=== PATIENT | male | born 1960 | race Caucasian/White ===

== ENCOUNTER 2019-10-27 11:17 | Inpatient (IN) | payer OTHER ==
[2019-10-27 12:49] VITALS: BMI 31.6
--- NOTE | 2019-10-27 13:23 | HP ---
CIWA Score - Admission Criteria [facility]AS Guidelines: Admission for Medically Managed Detox: Requires at least one of the followin. CIWA greater than 12 2. Seizures within the past 24 hours 3. Delirium tremens within the past 24 hours 4. Hallucinations within the past 24 hours 5. Acute intervention needed for co occurring medical disorder 6. Acute intervention needed for co occurring psychiatric disorder 7. Severe withdrawal that cannot be handled at a lower level of care (continued vomiting, continued diarrhea, abnormal vital signs) requiring intravenous medication and/or fluids 8. Admitting History and Physical - Admission Chief Complaint: " I want to stop alcohol and heroin use." History of Present Illness: 59 year old with alcohol dependence and opioid dependence on agonist therapy at [facility]. He is using alcohol about daily one pint of whisky but usually 2-3 times per week, but last drank this morning breathalyzer 0.059. He is on agonist therapy of 70mg of methadone daily from [facility] and still uses heroin out of habit 1 bag daily. He is also on oxycodone prescribed by PMD. Last seizure 5 years ago. He is smoking 2-3 ciggs per day, since 12 years old. PMH: Severe osteoarthritis, COPD, Asthma, Seizure Disorder, CAD, H/O Stroke 1998 Proair, Dilantin 300mg BID Isosorbide moninitrate daily, Nitro 0.4mg SL prn every 5 mins. Clopidrogel 75mg daily Ramipril 5mg daily Mirtazapine 45md qhs Baclofen 10mg TID prn Amitiza 24 mcg BID with food. Ranexa 1 tab BID Furosemide 20mg QD He domiciled in the [facility] with . He believes he needs a structured environment to completely stop using the alcohol. History Source: Patient Limitations to Obtaining History: No Limitations - Past Medical History LEGAL SUPPORT MANAGER: Yes: Seizure Cardiovascular: Yes: CAD, HTN Pulmonary: Yes: Asthma Admission [facility] Allergies/Adverse Reactions: Allergies Allergy/AdvReac Type Severity Reaction Status Date / Time No Known Allergies Allergy Verified 10/27/19 12:20 - Ebola screening Have you traveled outside of the country in the last 21 days: No Have you had contact with anyone from an Ebola affected area: No Do you have a fever: No Patient History - Patient Surgical History Past Surgical History: Yes Hx Neurologic Surgery: No Hx Cataract Extraction: No Hx Cardiac Surgery: No Hx Lung Surgery: No Hx Breast Surgery: No Hx Breast Biopsy: No Hx Abdominal Surgery: No Hx Appendectomy: No Hx Cholecystectomy: No Hx Genitourinary Surgery: No Hx Section: No Hx Orthopedic Surgery: Yes (left shoulder due to dislocations) Hx Hysterectomy: No Anesthesia Reaction: No - PPD History Previous Implant?: Yes Documented Results: Negative w/o proof Implanted On Prior [facility] Admission?: No Results: negative PPD to be Administered?: Yes - Smoking Cessation Smoking history: Current every day smoker Have you smoked in the past 12 months: Yes Aproximately how many cigarettes per day: 3 Hx Chewing Tobacco Use: No Initiated information on smoking cessation: Yes 'Breaking Loose' booklet given: 10/27/19 - Substances abused Alcohol Substance route: Oral Frequency: 3-6 times per week Amount used: 1 pint whisky Age of first use: 17 Date of last use: 10/27/19 Heroin Substance route: Inhalation Frequency: Daily Amount used: 1-2 bags Age of first use: 17 Date of last use: 10/27/19 Admission Physical Exam [facility] - Vital Signs Vital Signs: Vital Signs - 24 hr 10/27/19 12:15 Temperature 97.1 F L Pulse Rate 60 Respiratory 18 Rate Blood Pressure 115/75 Cleared for Admission [facility] - Detox or Rehab [facility] Level of Care: Medically Supervised Detox Regimen/Protocol: Not Applicable Claeared for Rehab Admission: Yes Screened but not Admitted - Documentation of Visit Screened but not Admitted: No Breathalyzer - Breathalyzer Breathalyzer: 0.059 Urine Drug Screen - Test Device Lot number: [id number] Expiration date: 07/21/21 - Control Is test valid?: Yes - Results Drug screen NEGATIVE: No Urine drug screen results: FEN-Fentanyl, MOP-Opiates, OXY-Oxycodone, MTD- Methadone Inpatient Rehab Admission - Rehab Decision to Admit Inpatient rehab admission?: Yes - Initial Determination Are CD services needed?: Yes Free of communicable disease: Yes Not in need of hospitalization: Yes - Rehab Admission Criteria Previous failed treatment: Yes Poor recovery environment: Yes Comorbidities: Yes Lacks judgement: Yes Patient is meeting Inpatient Rehab admission criteria:: Yes
[2019-10-27] MEDS ORDERED: LOPERAMIDE HCL 2 MG CAPSULE PO PRN (13:27)
[2019-10-27] MEDS ORDERED: ACETAMINOPHEN 325 MG TABLET (FP) PO PRN (13:27)
[2019-10-27] MEDS ORDERED: MENTHOL/PHENOL 1 EACH UD MM PRN (13:27)
[2019-10-27] MEDS ORDERED: guaiFENesin 200 MG/10 ML 10 ML UNIT-DOSE CUPS PO PRN (13:27)
[2019-10-27] MEDS ORDERED: MAGNESIUM HYDROX 2400MG/30ML ORAL SUSPENSION 30 ML CUP PO PRN (13:27)
[2019-10-27] MEDS ORDERED: P-EPHED 60MG/TRIPROLIDI 2.5MG TABLET PO PRN (13:27)
[2019-10-27] MEDS ORDERED: MAG HYDROX/AL HYDROX/SIMETH 30 ML UNIT-DOSE CUP PO PRN (13:27)
[2019-10-27] MEDS ORDERED: MAGNESIUM CITRATE 300 ML BOTTLE PO PRN (13:27)
[2019-10-27] MEDS ORDERED: PATIENT'S OWN MEDICATION (NON-FORMULARY) (Baclofen [Baclofen] 10 MG) PO PRN ×2 (13:28→16:57)
[2019-10-27] MEDS ORDERED: CLOPIDOGREL BISULFATE 75 MG PO SCH (13:28)
[2019-10-27] MEDS ORDERED: PATIENT'S OWN MEDICATION (NON-FORMULARY) (Oxycodone Hcl [Oxycodone Hcl] 30 MG) PO PRN (13:28)
[2019-10-27] MEDS ORDERED: ALBUTEROL SO4 8 GM HFA INHALER IH PRN (13:30)
[2019-10-27] MEDS ORDERED: NITROGLYCERIN SL SCH ×2 (13:30→17:00)
[2019-10-27] MEDS ORDERED: BACLOFEN 10 MG TABLET (FP) PO PRN (16:22)
[2019-10-27] MEDS ORDERED: NITROGLYCERIN SUBLINGUAL 1/150 0.4 MG TAB SL PRN (16:23)
[2019-10-27 16:29] LABS: HEMATOCRIT 45.4 % (35.4-49); HEMOGLOBIN 15.2 GM/dL (11.7-16.9); MCH 34.5 pg (25.7-33.7); MCHC 33.5 g/dl (32.0-35.9); MEAN CELL VOLUME 103.1 fl (80-96); MEAN PLT VOLUME 8.4 fl (7.5-11.1); PLATELET COUNT 276 K/MM3 (134-434); RDW 13.9 % (11.9-15.9); WHITE BLOOD COUNT 6.8 K/mm3 (4.0-10.0)
[2019-10-27] MEDS ORDERED: NITROGLYCERIN SL PRN (17:00)
[2019-10-27 17:10] LABS: ALBUMIN 3.6 g/dl (3.4-5.0); BILIRUBIN,TOTAL 0.2 mg/dL (0.2-1); BLOOD UREA NITROGEN 10.9 mg/dL (7-18); CALCIUM 8.5 mg/dL (8.5-10.1); CREATININE 0.7 mg/dL (0.55-1.3); POTASSIUM 3.9 mmol/L (3.5-5.1); TOT PROT 7.4 g/dl (6.4-8.2)
[2019-10-27] MEDS: DULoxetine HCL 30 MG CAPSULE.DR PO SCH (17:56)
[2019-10-27] MEDS: RANOLAZINE E.R. 1,000 MG TABLET (FP) PO SCH (21:16)
[2019-10-27] MEDS: MIRTAZAPINE 45 MG PO SCH (21:18)
[2019-10-27] MEDS: PHENYTOIN SODIUM PO SCH (21:19)
[2019-10-27] MEDS: PATIENT'S OWN MEDICATION (NON-FORMULARY) (Lubiprostone [Amitiza] 24 MCG) PO SCH (21:20)
[2019-10-27] MEDS: THIAMINE HCL 100 MG TABLET (FP) PO SCH (21:20)
[2019-10-27] MEDS ORDERED: PHENYTOIN NA EXTENDED 100 MG CAPSULE (FP) PO SCH (22:00)
[2019-10-27] MEDS ORDERED: PHENYTOIN SODIUM PO SCH (22:00)
[2019-10-27] MEDS ORDERED: RANOLAZINE E.R. 1,000 MG TABLET (FP) PO SCH (22:00)
[2019-10-27] MEDS ORDERED: MIRTAZAPINE 30 MG TABLET (FP) PO SCH (22:00)
[2019-10-27] MEDS ORDERED: MIRTAZAPINE 45 MG PO SCH (22:00)
[2019-10-28] MEDS ORDERED: METHADONE HCL 10 MG TABLET PO ONE (09:32)
[2019-10-28] MEDS ORDERED: METHADONE 40 MG, METHADONE 30 MG PO ONE (09:45)
[2019-10-28] MEDS ORDERED: ISOSORBIDE MONONITRATE 30 MG TAB.SR.24H (FP) PO SCH (10:00)
[2019-10-28] MEDS ORDERED: FUROSEMIDE PO SCH (10:00)
[2019-10-28] MEDS ORDERED: RAMIPRIL 5 MG CAPSULE (FP) PO SCH (10:00)
[2019-10-28] MEDS ORDERED: CLOPIDOGREL BISULFATE 75 MG TABLET (FP) PO SCH (10:00)
[2019-10-28] MEDS ORDERED: FUROSEMIDE 20 MG TABLET (FP) PO SCH (10:00)
[2019-10-28] MEDS ORDERED: PATIENT'S OWN MEDICATION (NON-FORMULARY) (Isosorbide Mononitrate [Isosorbide Mononitrate E PO SCH (10:00)
[2019-10-28] MEDS ORDERED: RAMIPRIL 5 MG PO SCH (10:00)
[2019-10-28] MEDS ORDERED: METHADONE HCL 40 MG DISPERSABLE TABLET ONE (10:04)
[2019-10-28] MEDS ORDERED: METHADONE HCL 10 MG TABLET ONE (10:04)
[2019-10-28] MEDS: PRENATAL VITAMINS W/ FOLIC ACID TABLET (FP) PO SCH (10:06)
[2019-10-28] MEDS: PATIENT'S OWN MEDICATION (NON-FORMULARY) (Lubiprostone [Amitiza] 24 MCG) PO SCH ×2 (10:07→21:08)
[2019-10-28] MEDS: PATIENT'S OWN MEDICATION (NON-FORMULARY) (Isosorbide Mononitrate [Isosorbide Mononitrate E PO SCH (10:08)
[2019-10-28] MEDS: RAMIPRIL 5 MG PO SCH (10:08)
[2019-10-28] MEDS: FUROSEMIDE PO SCH (10:08)
[2019-10-28] MEDS: CLOPIDOGREL BISULFATE 75 MG PO SCH (10:09)
[2019-10-28] MEDS: NICOTINE 7 MG/24 HOURS TOPICAL PATCH TD SCH (10:10)
[2019-10-28] MEDS: PHENYTOIN SODIUM PO SCH ×2 (10:12→21:06)
[2019-10-28] MEDS: RANOLAZINE E.R. 1,000 MG TABLET (FP) PO SCH ×2 (10:13→21:07)
[2019-10-28] MEDS: DULoxetine HCL 30 MG CAPSULE.DR PO SCH (10:47)
--- NOTE | 2019-10-28 13:44 | PN ---
[facility] Progress Note Note: Pt is a 59 y/o male with a hx of NILDA and on Methadone 70 mg po daily maintenance admitted to rehab from [facility]. PMHx:Severe Osteoarthritis,chronic LBP/pinched nerve, Asthma,COPD,CAD,Stroke( 1998),Seizure disorder. Uses WC at home but has own walker for ambulation(with patient). Pt reports he has in pain management at [facility]. Pt reports he has a primary care doctor on [address] [place] [address](does not remember the name. Reports was previously Dr. Loo at same location). Pt reports [facility] recommended to go to rehab because using heroin but reports he only used his Rx oxycodone. Vital Signs - 24 hr 10/27/19 10/28/19 10/28/19 15:51 00:30 03:30 Temperature 97.8 F Pulse Rate 58 L Respiratory 18 20 18 Rate Blood Pressure 124/72 10/28/19 10/28/19 10/28/19 06:54 10:00 11:39 Temperature 97.2 F L Pulse Rate 52 L 62 62 Respiratory 18 18 18 Rate Blood Pressure 135/66 132/77 132/77 Laboratory Tests 10/27/19 10/27/19 13:50 13:50 WBC 6.8 RBC 4.40 Hgb 15.2 Hct 45.4 MCV 103.1 H MCH 34.5 H MCHC 33.5 RDW 13.9 Plt Count 276 MPV 8.4 Sodium 138 Potassium 3.9 Chloride 106 Carbon Dioxide 24 Anion Gap 8 BUN 10.9 Creatinine 0.7 Est GFR (CKD-EPI)AfAm 119.72 Est GFR (CKD-EPI)NonAf 103.30 Random Glucose 106 Calcium 8.5 Total Bilirubin 0.2 AST 16 ALT 24 Alkaline Phosphatase 107 Total Protein 7.4 Albumin 3.6 labs noted RPR pending Alert o x 3 Ambulating with walker/with Body Brace in place due to chronic LBP. Exremities/skin:minimal minnie pitting edema;skin intact A/P New rehab patient Maintain safety labs and meds reviewed Lidocaine patch 5% apply as directed Analgesic balm Topical apply @HS as directed Increase po fluids as tolerated.
[2019-10-28] MEDS: LIDOCAINE 5% TOPICAL PATCH TP SCH (15:32)
[2019-10-28] MEDS: MIRTAZAPINE 45 MG PO SCH (21:06)
[2019-10-28] MEDS: MELATONIN 5 MG TABLETS PO PRN (21:09)
[2019-10-28] MEDS: THIAMINE HCL 100 MG TABLET (FP) PO SCH (21:09)
[2019-10-28] MEDS: LIDOCAINE PATCH REMOVAL MC SCH (21:10)
[2019-10-28] MEDS: METHYL SALICYLATE/MENTHOL OINT 30 GM TUBE TP SCH (21:10)
[2019-10-29] MEDS: IBUPROFEN 400 MG TABLET (FP) PO PRN (01:23)
[2019-10-29] MEDS ORDERED: METHADONE HCL 10 MG TABLET ONE (04:50)
[2019-10-29] MEDS ORDERED: METHADONE HCL 40 MG DISPERSABLE TABLET ONE (04:50)
[2019-10-29] MEDS ORDERED: METHADONE HCL 10 MG TABLET PO SCH (06:00)
[2019-10-29] MEDS: METHADONE 40 MG, METHADONE 30 MG PO SCH (06:17)
[2019-10-29 09:43] LABS: PH,URINE 5.5 (5.0-8.0); URINE APPEARANCE CLEAR; URINE BILIRUBIN NEGATIVE (NEGATIVE); URINE COLOR YELLOW; URINE GLUCOSE (UA) NEGATIVE (NEGATIVE); URINE KETONE NEGATIVE (NEGATIVE); URINE LEUK ESTERASE NEGATIVE (NEGATIVE); URINE NITRITE NEGATIVE (NEGATIVE); URINE PROTEIN TRACE (NEGATIVE)
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
[2019-10-29] MEDS: LIDOCAINE 5% TOPICAL PATCH TP SCH (10:29)
[2019-10-29] MEDS: PRENATAL VITAMINS W/ FOLIC ACID TABLET (FP) PO SCH (10:29)
[2019-10-29] MEDS: NICOTINE 7 MG/24 HOURS TOPICAL PATCH TD SCH (10:29)
[2019-10-29] MEDS: PATIENT'S OWN MEDICATION (NON-FORMULARY) (Lubiprostone [Amitiza] 24 MCG) PO SCH ×2 (10:30→21:14)
[2019-10-29] MEDS: RANOLAZINE E.R. 1,000 MG TABLET (FP) PO SCH ×2 (10:30→21:14)
[2019-10-29] MEDS: PHENYTOIN SODIUM PO SCH ×2 (10:30→21:13)
[2019-10-29] MEDS ORDERED: DULoxetine HCL 30 MG CAPSULE.DR PO SCH (10:30)
[2019-10-29] MEDS: FUROSEMIDE PO SCH (10:31)
[2019-10-29] MEDS: PATIENT'S OWN MEDICATION (NON-FORMULARY) (Isosorbide Mononitrate [Isosorbide Mononitrate E PO SCH (10:31)
[2019-10-29] MEDS: CLOPIDOGREL BISULFATE 75 MG PO SCH (10:32)
[2019-10-29] MEDS: RAMIPRIL 5 MG PO SCH (10:32)
[2019-10-29] MEDS: DULoxetine HCL 30 MG CAPSULE.DR PO SCH (10:35)
[2019-10-29] MEDS: THIAMINE HCL 100 MG TABLET (FP) PO SCH (21:14)
[2019-10-29] MEDS: MIRTAZAPINE 45 MG PO SCH (21:14)
[2019-10-29] MEDS: MELATONIN 5 MG TABLETS PO PRN (21:14)
[2019-10-29] MEDS: METHYL SALICYLATE/MENTHOL OINT 30 GM TUBE TP SCH (21:16)
[2019-10-29] MEDS: LIDOCAINE PATCH REMOVAL MC SCH (21:16)
[2019-10-30] MEDS ORDERED: METHADONE HCL 10 MG TABLET ONE (04:32)
[2019-10-30] MEDS ORDERED: METHADONE HCL 40 MG DISPERSABLE TABLET ONE (04:32)
[2019-10-30] MEDS: METHADONE 40 MG, METHADONE 30 MG PO SCH (06:07)
[2019-10-30] MEDS: DULoxetine HCL 30 MG CAPSULE.DR PO SCH (10:09)
[2019-10-30] MEDS: CLOPIDOGREL BISULFATE 75 MG PO SCH (10:09)
[2019-10-30] MEDS: PRENATAL VITAMINS W/ FOLIC ACID TABLET (FP) PO SCH (10:09)
[2019-10-30] MEDS: FUROSEMIDE PO SCH (10:10)
[2019-10-30] MEDS: RANOLAZINE E.R. 1,000 MG TABLET (FP) PO SCH ×2 (10:10→21:09)
[2019-10-30] MEDS: PATIENT'S OWN MEDICATION (NON-FORMULARY) (Lubiprostone [Amitiza] 24 MCG) PO SCH ×2 (10:10→21:09)
[2019-10-30] MEDS: PATIENT'S OWN MEDICATION (NON-FORMULARY) (Isosorbide Mononitrate [Isosorbide Mononitrate E PO SCH (10:10)
[2019-10-30] MEDS: PHENYTOIN SODIUM PO SCH ×2 (10:10→21:09)
[2019-10-30] MEDS: RAMIPRIL 5 MG PO SCH (10:11)
[2019-10-30] MEDS: LIDOCAINE 5% TOPICAL PATCH TP SCH (10:11)
[2019-10-30] MEDS: NICOTINE 7 MG/24 HOURS TOPICAL PATCH TD SCH (10:12)
[2019-10-30] MEDS ORDERED: MELATONIN 5 MG TABLETS PO PRN (11:44)
[2019-10-30] MEDS: THIAMINE HCL 100 MG TABLET (FP) PO SCH (21:08)
[2019-10-30] MEDS: MIRTAZAPINE 45 MG PO SCH (21:09)
[2019-10-30] MEDS: LIDOCAINE PATCH REMOVAL MC SCH (21:10)
[2019-10-30] MEDS: METHYL SALICYLATE/MENTHOL OINT 30 GM TUBE TP SCH (21:10)
[2019-10-31] MEDS ORDERED: METHADONE HCL 10 MG TABLET ONE (04:12)
[2019-10-31] MEDS ORDERED: METHADONE HCL 40 MG DISPERSABLE TABLET ONE (04:12)
[2019-10-31] MEDS: METHADONE 40 MG, METHADONE 30 MG PO SCH (06:04)
[2019-10-31] MEDS: LIDOCAINE 5% TOPICAL PATCH TP SCH (10:07)
[2019-10-31] MEDS: RANOLAZINE E.R. 1,000 MG TABLET (FP) PO SCH ×2 (10:08→21:13)
[2019-10-31] MEDS: NICOTINE 7 MG/24 HOURS TOPICAL PATCH TD SCH (10:08)
[2019-10-31] MEDS: DULoxetine HCL 30 MG CAPSULE.DR PO SCH (10:08)
[2019-10-31] MEDS: PRENATAL VITAMINS W/ FOLIC ACID TABLET (FP) PO SCH (10:08)
[2019-10-31] MEDS: CLOPIDOGREL BISULFATE 75 MG PO SCH (10:09)
[2019-10-31] MEDS: PHENYTOIN SODIUM PO SCH ×2 (10:09→21:14)
[2019-10-31] MEDS: RAMIPRIL 5 MG PO SCH (10:10)
[2019-10-31] MEDS: PATIENT'S OWN MEDICATION (NON-FORMULARY) (Isosorbide Mononitrate [Isosorbide Mononitrate E PO SCH (10:10)
[2019-10-31] MEDS: FUROSEMIDE PO SCH (10:10)
[2019-10-31] MEDS: PATIENT'S OWN MEDICATION (NON-FORMULARY) (Lubiprostone [Amitiza] 24 MCG) PO SCH ×2 (11:08→21:14)
[2019-10-31] MEDS: METHYL SALICYLATE/MENTHOL OINT 30 GM TUBE TP SCH (21:12)
[2019-10-31] MEDS: LIDOCAINE PATCH REMOVAL MC SCH (21:13)
[2019-10-31] MEDS: THIAMINE HCL 100 MG TABLET (FP) PO SCH (21:13)
[2019-10-31] MEDS: MIRTAZAPINE 45 MG PO SCH (21:15)
[2019-11-01] MEDS: IBUPROFEN 400 MG TABLET (FP) PO PRN (03:51)
[2019-11-01] MEDS ORDERED: METHADONE HCL 10 MG TABLET ONE (04:58)
[2019-11-01] MEDS ORDERED: METHADONE HCL 40 MG DISPERSABLE TABLET ONE (04:58)
[2019-11-01] MEDS: METHADONE 40 MG, METHADONE 30 MG PO SCH (06:23)
[2019-11-01 07:16] VITALS: PULSE 60
[2019-11-01] MEDS: DULoxetine HCL 30 MG CAPSULE.DR PO SCH (09:51)
[2019-11-01] MEDS: NICOTINE 7 MG/24 HOURS TOPICAL PATCH TD SCH (09:51)
[2019-11-01] MEDS: LIDOCAINE 5% TOPICAL PATCH TP SCH (09:51)
[2019-11-01] MEDS: PHENYTOIN SODIUM PO SCH ×2 (09:53→21:06)
[2019-11-01] MEDS: CLOPIDOGREL BISULFATE 75 MG PO SCH (09:53)
[2019-11-01] MEDS: RANOLAZINE E.R. 1,000 MG TABLET (FP) PO SCH ×2 (09:53→21:07)
[2019-11-01] MEDS: RAMIPRIL 5 MG PO SCH (09:54)
[2019-11-01] MEDS: PATIENT'S OWN MEDICATION (NON-FORMULARY) (Lubiprostone [Amitiza] 24 MCG) PO SCH ×2 (09:54→21:07)
[2019-11-01] MEDS: FUROSEMIDE PO SCH (09:54)
[2019-11-01] MEDS: PATIENT'S OWN MEDICATION (NON-FORMULARY) (Isosorbide Mononitrate [Isosorbide Mononitrate E PO SCH (09:55)
[2019-11-01] MEDS: PRENATAL VITAMINS W/ FOLIC ACID TABLET (FP) PO SCH (09:56)
[2019-11-01] MEDS: THIAMINE HCL 100 MG TABLET (FP) PO SCH (21:06)
[2019-11-01] MEDS: MIRTAZAPINE 45 MG PO SCH (21:08)
[2019-11-01] MEDS: METHYL SALICYLATE/MENTHOL OINT 30 GM TUBE TP SCH (21:08)
[2019-11-01] MEDS: LIDOCAINE PATCH REMOVAL MC SCH (21:08)
[2019-11-02] MEDS ORDERED: METHADONE HCL 10 MG TABLET ONE (04:03)
[2019-11-02] MEDS ORDERED: METHADONE HCL 40 MG DISPERSABLE TABLET ONE (04:03)
[2019-11-02] MEDS: METHADONE 40 MG, METHADONE 30 MG PO SCH (06:06)
[2019-11-02 06:40] VITALS: BP 130/76; TEMP 97.6
[2019-11-02] MEDS: PRENATAL VITAMINS W/ FOLIC ACID TABLET (FP) PO SCH (09:07)
[2019-11-02] MEDS: DULoxetine HCL 30 MG CAPSULE.DR PO SCH (09:07)
--- NOTE | 2019-11-02 09:07 | DS ---
[facility] Rehab Discharge Summary - [facility] Rehab Discharge Summary Admission Date: 10/27/19 Discharge Date: 11/02/19 - History Pertinent Past History: NILDA on methadone 70mg daily, CAD, CVA in 1998, asthma,COPD, OA with LBP, seizure disorder and alcohol dependence - Discharge Physical Exam Vital Signs: Vital Signs Temperature 97.6 F 11/02/19 06:39 Pulse Rate 60 11/02/19 06:39 Respiratory Rate 18 11/02/19 06:39 Blood Pressure 130/76 11/02/19 06:39 O2 Sat by Pulse Oximetry (%) Pertinent Admission Physical Exam Findings: Withdrawal sx, completed detox with subsequent admission to rehab floor Laboratory Last Values WBC 6.8 K/mm3 (4.0-10.0) 10/27/19 13:50 RBC 4.40 M/mm3 (4.00-5.60) 10/27/19 13:50 Hgb 15.2 GM/dL (11.7-16.9) 10/27/19 13:50 Hct 45.4 % (35.4-49) 10/27/19 13:50 MCV 103.1 fl (80-96) H 10/27/19 13:50 MCH 34.5 pg (25.7-33.7) H 10/27/19 13:50 MCHC 33.5 g/dl (32.0-35.9) 10/27/19 13:50 RDW 13.9 % (11.9-15.9) 10/27/19 13:50 Plt Count 276 K/MM3 (134-434) 10/27/19 13:50 MPV 8.4 fl (7.5-11.1) 10/27/19 13:50 Sodium 138 mmol/L (136-145) 10/27/19 13:50 Potassium 3.9 mmol/L (3.5-5.1) 10/27/19 13:50 Chloride 106 mmol/L (98-107) 10/27/19 13:50 Carbon Dioxide 24 mmol/L (21-32) 10/27/19 13:50 Anion Gap 8 MMOL/L (8-16) 10/27/19 13:50 BUN 10.9 mg/dL (7-18) 10/27/19 13:50 Creatinine 0.7 mg/dL (0.55-1.3) 10/27/19 13:50 Est GFR (CKD-EPI)AfAm 119.72 10/27/19 13:50 Est GFR (CKD-EPI)NonAf 103.30 10/27/19 13:50 Random Glucose 106 mg/dL (74-106) 10/27/19 13:50 Calcium 8.5 mg/dL (8.5-10.1) 10/27/19 13:50 Total Bilirubin 0.2 mg/dL (0.2-1) 10/27/19 13:50 AST 16 U/L (15-37) 10/27/19 13:50 ALT 24 U/L (13-61) 10/27/19 13:50 Alkaline Phosphatase 107 U/L (45-117) 10/27/19 13:50 Total Protein 7.4 g/dl (6.4-8.2) 10/27/19 13:50 Albumin 3.6 g/dl (3.4-5.0) 10/27/19 13:50 Urine Color Yellow 10/29/19 07:57 Urine Appearance Clear 10/29/19 07:57 Urine pH 5.5 (5.0-8.0) 10/29/19 07:57 Ur Specific [place] 1.031 (1.010-1.035) 10/29/19 07:57 Urine Protein Trace (NEGATIVE) 10/29/19 07:57 Urine Glucose (UA) Negative (NEGATIVE) 10/29/19 07:57 Urine Ketones Negative (NEGATIVE) 10/29/19 07:57 Urine Blood Negative (NEGATIVE) 10/29/19 07:57 Urine Nitrite Negative (NEGATIVE) 10/29/19 07:57 Urine Bilirubin Negative (NEGATIVE) 10/29/19 07:57 Urine Urobilinogen 1.0 mg/dL (0.2-1.0) 10/29/19 07:57 Ur Leukocyte Esterase Negative (NEGATIVE) 10/29/19 07:57 RPR Titer Nonreactive (NONREACTIVE) 10/27/19 13:50 - Treatment Discharge Condition: Discharge condition good (Patient requesting discharge because he has pain and wants to go home and take his controlled pain meds. He reports [facility] in [facility] and will continue to receive the services. He has no acute distress.) - Medication Discharge Medications: Ambulatory Orders Albuterol Sulfate [Proair Respiclick] 90 mcg IH PRN PRN 10/27/19 Baclofen 10 mg PO TID PRN 10/27/19 Duloxetine HCl [Cymbalta -] 30 mg PO DAILY 10/27/19 Lubiprostone [Amitiza] 24 mcg PO BID 10/27/19 Mirtazapine 45 mg PO HS 10/27/19 Nitroglycerin Sublingual [Nitrostat -] 0.4 mg SL ASDIR 10/27/19 Clopidogrel Bisulfate [Clopidogrel] 75 mg PO DAILY #30 tablet 11/02/19 Furosemide [Lasix -] 20 mg PO DAILY #30 tablet 11/02/19 Furosemide [Lasix -] 20 mg PO DAILY 30 Days #30 tablet 11/02/19 Isosorbide Mononitrate [Isosorbide Mononitrate ER] 30 mg PO DAILY #30 tab.er.24h 11/02/19 Phenytoin Sodium Extended 300 mg PO BID #60 capsule 11/02/19 Ramipril [Altace] 5 mg PO DAILY #30 capsule 11/02/19 Ranolazine [Ranexa -] 1,000 mg PO BID #60 tab 11/02/19 - Medication-Assisted Treatment (MAT) Medication-Assisted Treatment (MAT): No - Discharge Instructions Diet, activity, other medical instructions: Diet: Activity: Other medical instructions: - Diagnosis (1) Alcohol dependence Current Visit: Yes Status: Chronic Qualifiers: Substance use status: uncomplicated Qualified Code(s): F10.20 - Alcohol dependence, uncomplicated (2) CAD (coronary artery disease) Current Visit: Yes Status: Chronic (3) COPD (chronic obstructive pulmonary disease) Current Visit: Yes Status: Chronic (4) Opioid dependence on agonist therapy Current Visit: Yes Status: Chronic (5) Osteoarthritis Current Visit: Yes Status: Chronic Qualifiers: Osteoarthritis location: multiple joints Osteoarthritis type: primary Qualified Code(s): M15.0 - Primary generalized (osteo)arthritis (6) CVA (cerebral vascular accident) Current Visit: No Status: Resolved (7) MDD (major depressive disorder) Current Visit: Yes Status: Ruled-out - Follow-up Referral Minutes to complete discharge: 30 - AMA Did Patient Leave Against Medical Advice: No
[2019-11-02] MEDS: PHENYTOIN SODIUM PO SCH (09:08)
[2019-11-02] MEDS: RANOLAZINE E.R. 1,000 MG TABLET (FP) PO SCH (09:10)
[2019-11-02] MEDS: RAMIPRIL 5 MG PO SCH (09:10)
[2019-11-02] MEDS: FUROSEMIDE PO SCH (09:11)
[2019-11-02] MEDS: PATIENT'S OWN MEDICATION (NON-FORMULARY) (Isosorbide Mononitrate [Isosorbide Mononitrate E PO SCH (09:13)
[2019-11-02] MEDS: PATIENT'S OWN MEDICATION (NON-FORMULARY) (Lubiprostone [Amitiza] 24 MCG) PO SCH (09:13)
[2019-11-02] MEDS: CLOPIDOGREL BISULFATE 75 MG PO SCH (09:16)
[2019-11-02] MEDS: LIDOCAINE 5% TOPICAL PATCH TP SCH (09:17)
[2019-11-02] MEDS: NICOTINE 7 MG/24 HOURS TOPICAL PATCH TD SCH (09:18)
== END 2019-11-02 09:24 | disposition home or self-care (01) | DRG 772 ==
LOC: YASAS 11:17 → Y5N 15:06
PROVIDERS: ADMIT Neuromusculoskeletal Medicine & OMM; ATTEND Neuromusculoskeletal Medicine & OMM
PROC: HZ42ZZZ Group Counseling for Substance Abuse Treatment, Cognitive-Behavioral (ICD-10-PCS; principal; 2019-10-27)
DX: F10.20 Alcohol dependence, uncomplicated (principal); F11.20 Opioid dependence, uncomplicated; F17.210 Nicotine dependence, cigarettes, uncomplicated; F19.24 Other psychoactive substance dependence with psychoactive substance-induced mood disorder; F19.282 Other psychoactive substance dependence with psychoactive substance-induced sleep disorder; F32.9 Major depressive disorder, single episode, unspecified; I25.10 Atherosclerotic heart disease of native coronary artery without angina pectoris; J44.9 Chronic obstructive pulmonary disease, unspecified; J45.998 Other asthma; M15.0 Primary generalized (osteo)arthritis; M54.5 Low back pain; Z99.89 Dependence on other enabling machines and devices; Z97.8 Presence of other specified devices
CPT/HCPCS: 36415; 80053; 81003; 85027; 86593